=== PATIENT | male | born 1945 | race Caucasian/White ===

== ENCOUNTER → 2019-06-23 | Outpatient (CLI) | payer MEDICARE ==
--- NOTE | 2019-06-23 11:46 | CT ---
EXAMINATION TYPE: CT sinus wo con DATE OF EXAM: 06/23/2019 COMPARISON: NONE HISTORY: Chronic sinusitis per order. Sinusitis for 10 months with facial pain requiring antibiotics per patient. CT DLP: 622.3 mGycm. Automated Exposure Control for Dose Reduction was Utilized. TECHNIQUE: CT scan of the sinuses is performed without contrast, axial images are obtained, coronal r eformatted images are also reviewed. FINDINGS:. There is impacted molar tooth into the inferior portion of left maxillary sinus with mild to moderate mucosal thickening. There is 1.1 cm mucous retention cyst or polyp superior to this along posterior wall axial image 13. There is hypoplastic left frontal sinus. There is moderate to severe mucosal thickening in the small caliber right frontal sinus. There is het erogeneous fluid nearly completely filling the right maxillary sinus with some central density axial image 10. There is extension into the maxillary antrum and nasal vault without bony destruction. Ther e is partial opacification of the right anterior ethmoid sinuses. Ostiomeatal complex is patent on th e left coronal image 16. Visualized portion of mastoid air cells show no abnormal opacification. The globes are intact bilate rally. Visualized portion of brain parenchyma shows diffuse age-related cerebral atrophy. IMPRESSION: Persistent severe acute right-sided maxillary sinusitis extending through the ostiomeatal complex. Consider direct visualization if symptoms persist.
== END | disposition home or self-care (01) ==
LOC: RADCTMAIN 11:05
PROVIDERS: ATTEND Otolaryngology
DX: J32.9 Chronic sinusitis, unspecified (principal)
CPT/HCPCS: 70486

== ENCOUNTER 2022-03-29 09:46 | Day surgery (SDC) | payer MEDICARE ==
[~2022-03-29 09:46] MED LIST: LACTATED RINGERS 1,000 ML IV SCH; MOXIFLOXACIN HCL 0.5% DROPS 3 ML BTL OP PRN; TETRACAINE 0.5% OPHTH (PF) DROPS 4 ML BTL OP PRN; TIMOLOL 0.5% OPHTH DROPS 5 ML BTL OP PRN
[2022-03-29] MEDS: PILOCARPINE 2% OPHTH DROPS 15 ML BTL OP PRN ×3 (11:50→12:00)
[2022-03-29 11:55] VITALS: TEMP 97
[2022-03-29] MEDS ORDERED: MIDAZOLAM 2 MG/2 ML VIAL ONE (12:28)
[2022-03-29] MEDS ORDERED: fentaNYL (PF) 50 MCG/ML 2 ML AMP ONE (12:28)
[2022-03-29] MEDS ORDERED: EPINEPHrine (PF) 0.3 ML in BALANCED SALT IRRIG SOLN COMB2 500 ML IRRIGATION ONE (12:45)
[2022-03-29] MEDS ORDERED: LIDOCAINE 1% INJ 10MG/ML (5 ML VIAL-PF) SQ ONE (12:46)
[2022-03-29] MEDS ORDERED: CHONDROITIN-SOD HYALURONATE 1 EACH SYRINGE (0.75 ML) INTRAOCULA ONE (12:47)
[2022-03-29] MEDS ORDERED: BALANCED SALT IRRIG SOLN COMB2 15 ML IRRIG.SOLN IRRIGATION ONE (12:47)
[2022-03-29] MEDS ORDERED: TRYPAN BLUE 0.06% SYRINGE 0.5 ML SYRINGE MISCELLANE ONE (12:47)
--- NOTE | 2022-03-29 12:58 | P.OP ---
Date of Procedure: 03/29/22 Preoperative Diagnosis: POAG mild Postoperative Diagnosis: same Procedure(s) Performed: goniotomy OS Implants: none Anesthesia: MAC Surgeon: Addy Tobin Pathology: none sent Condition: stable Disposition: same day Indications for Procedure: glaucoma control Operative Findings: no complications
[2022-03-29 13:06] VITALS: RESP 16
[2022-03-29 13:23] VITALS: BP 166/73; PULSE 59
--- NOTE | 2022-03-29 22:11 | OP ---
OPERATIVE REPORT DATE OF SURGERY: 03/29/2022. PROCEDURE: Goniotomy of the left eye. PREOPERATIVE DIAGNOSIS: Primary open-angle glaucoma, mild stage. POSTOPERATIVE DIAGNOSIS: Primary open-angle glaucoma, mild stage. SURGEON: Dr. Addy Tobin. ANESTHESIA: Topical. ESTIMATED BLOOD LOSS: Less than 5 mL. SPECIMEN TAKEN: None. NARRATIVE: After obtaining the appropriate consent, the patient was brought to the operating room. There he was placed under cardiac monitoring, prepped and draped in the usual sterile manner. He was approached from his left temporal side, and at the 3 o'clock position, a 2.5 mm keratome was used to create a self-sealing corneal flap incision. Through this opening, 1% Xylocaine MPF was instilled into the anterior chamber. This was followed by instillation of Trypan blue, which was allowed to stay in the eye for about one minute. This was irrigated away with balanced salt solution and replaced with Viscoat. The patient was then asked to rotate his head 45 degrees to his right, and a gonioprism was placed on the patient's eye. A XCast [place]so[place] dual blade goniotomy knife was then passed across the anterior chamber, and using an inside-out technique the nasal trabecular meshwork was removed for approximately 4-1/2 clock hours. The patient was rotated back to the normal supine position and the remaining viscoelastic was then removed from the anterior chamber without difficulty. The eye was then brought to slightly above normal intraocular pressure with balanced salt solution and the wound was confirmed watertight. He then received two drops of 0.5% timolol followed by two drops of moxifloxacin. He was then lightly patched and shielded in the usual manner. There were no complications from the procedure. He tolerated the procedure well and was returned to [facility] in good condition. MMODL / IJN: [id number] /
== END 2022-03-29 13:37 | disposition home or self-care (01) ==
LOC: OR 09:46
PROVIDERS: ATTEND Ophthalmology
DX: H40.1131 Primary open-angle glaucoma, bilateral, mild stage (principal); H53.002 Unspecified amblyopia, left eye; H02.413 Mechanical ptosis of bilateral eyelids; H57.813 Brow ptosis, bilateral; H00.023 Hordeolum internum right eye, unspecified eyelid; H00.026 Hordeolum internum left eye, unspecified eyelid; H02.403 Unspecified ptosis of bilateral eyelids; H52.13 Myopia, bilateral; H50.15 Alternating exotropia; H52.4 Presbyopia; Z96.1 Presence of intraocular lens; Z87.891 Personal history of nicotine dependence; M19.90 Unspecified osteoarthritis, unspecified site; Z83.518 Family history of other specified eye disorder; Z83.511 Family history of glaucoma; Z79.82 Long term (current) use of aspirin; Z80.9 Family history of malignant neoplasm, unspecified; Z82.3 Family history of stroke
CPT/HCPCS: 65820; J2250; J0171; J2001; J3010